=== PATIENT | male | born 1955 | race Caucasian/White ===

== ENCOUNTER 2022-04-22 09:05 | Outpatient (CLI) | payer OTHER, SELFPAY ==
--- NOTE | 2022-04-22 09:25 | XR_ITS ---
WS: [id number] XR shoulder LT min 2V* [id number] REASON FOR EXAM: L SHOULDER DEGENERATIVE ARTHRITIS FINDINGS: No fracture or focal bone lesion. Previous rotator cuff tendon repair with tendon anchors in the humeral head. Mild narrowing of the glenohumeral joint with mild subchondral sclerosis within the subarticular kishor oid. Mild narrowing of the acromioclavicular joint with marginal subchondral sclerosis and osteophytes. XR/XR shoulder LT min 2V* [id number] IMPRESSION: Post rotator cuff tendon repair. 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
== END 2022-04-22 09:06 | disposition home or self-care (01) ==
LOC: RAD 09:11
PROVIDERS: PCP Internal Medicine; Visit Provider Chiropractor
DX: M19.012 Primary osteoarthritis, left shoulder (principal)
CPT/HCPCS: 73030